=== PATIENT | male | born 1980 | race Two or more races ===

== ENCOUNTER 2022-12-18 10:10 | Inpatient (IN) | payer OTHER ==
[2022-12-18] MEDS ORDERED: ACETAMINOPHEN 1000 MG/100 ML BAG IVPB ONE (10:38)
[2022-12-18] MEDS ORDERED: FAMOTIDINE 20 MG/50 ML IVPB 20 MG/50 ML MG IVPB ONE ×2 (10:38→11:01)
[2022-12-18] MEDS ORDERED: LACTATED RINGERS SOLUTION 1,000 ML/1,000 ML INFUS.BAG IV SCH ×2 (10:45→18:45)
[2022-12-18 11:00] LABS: BASO % 0.2 % (0-2.0); EOS % 2.1 % (0-4.5); HEMATOCRIT 42.5 % (35.4-49); HEMOGLOBIN 14.1 GM/dL (11.7-16.9); LYMPH % 7.3 % (8-40); MCH 29.9 pg (25.7-33.7); MCHC 33.3 g/dl (32.0-35.9); MEAN CELL VOLUME 89.8 fl (80-96); MONO % 3.7 % (3.8-10.2); NEUT % 86.7 % (42.8-82.8); PLATELET COUNT 288 10^3/uL (134-434); RBC 4.73 M/mm3 (4.00-5.60); RDW 12.8 % (11.9-15.9); WHITE BLOOD COUNT 17.4 K/mm3 (4.0-10.0)
[2022-12-18] MEDS ORDERED: ACETAMINOPHEN INJECTION 100 ML IVPB ONE (11:01)
[2022-12-18 11:08] LABS: INR 1.03 (0.83-1.09)
[2022-12-18 11:11] LABS: ACTIVATED PTT 26.9 SECONDS (25.2-36.5)
[2022-12-18 11:26] LABS: POTASSIUM 4.2 mmol/L (3.5-5.1)
[2022-12-18 11:28] LABS: BLOOD UREA NITROGEN 19.8 mg/dL (7-18); CALCIUM 8.5 mg/dL (8.5-10.1)
[2022-12-18 11:30] LABS: ALBUMIN 3.8 g/dl (3.4-5.0)
[2022-12-18 11:31] LABS: CREATININE 0.9 mg/dL (0.55-1.3)
[2022-12-18 11:33] LABS: BILIRUBIN,TOTAL 0.4 mg/dL (0.2-1)
[2022-12-18] MEDS ORDERED: ONDANSETRON 4 MG/2 ML VIAL IVPUSH ONE (13:00)
[2022-12-18] MEDS ORDERED: morphine CARPU-JECT 4 MG/1 ML DISP.SYRIN IVPUSH ONE (13:01)
[2022-12-18] MEDS ORDERED: ONDANSETRON 4 MG/2 ML VIAL ONE (13:16)
[2022-12-18] MEDS ORDERED: morphine SULFATE 4 MG/ML VIAL ONE (13:16)
[2022-12-18] MEDS ORDERED: BUPIVACAINE HCL/PF 0.25% (2.5MG/ML) 10 ML VIAL ONE ×2 (14:33→16:52)
[2022-12-18] MEDS ORDERED: HEPARIN NA (PORCINE) 5,000 UNITS/ML 1ML VIAL ONE (14:33)
[2022-12-18] MEDS ORDERED: ROCURONIUM BROMIDE 50 MG/5 ML SYRINGE ONE (16:10)
[2022-12-18] MEDS ORDERED: PROPOFOL 40 ML ONE (16:10)
[2022-12-18] MEDS ORDERED: MIDAZOLAM HCL 2 MG/2 ML SINGLE DOSE VIAL ONE (16:10)
[2022-12-18] MEDS ORDERED: HYDROmorphone HCl 2 MG/ML VIAL ONE (16:47)
[2022-12-18] MEDS ORDERED: CEFOXITIN SODIUM 1 GM IVPB ONE (16:54)
[2022-12-18] MEDS ORDERED: cefOXitin SODIUM 2 GM VIAL (RESTRICTED TO ID) IVPB ONE (16:54)
[2022-12-18] MEDS ORDERED: cefoTEtan DISODIUM 1 GM VIAL (RESTRICTED TO ID) IVPB ONE (17:00)
[2022-12-18] MEDS ORDERED: BUPIVACAINE HCL/PF 0.25% (2.5MG/ML) 10 ML VIAL IJ ONE (17:08)
[2022-12-18] MEDS ORDERED: SUGAMMADEX SODIUM 200 MG/2 ML VIAL ONE (17:55)
[2022-12-18] MEDS ORDERED: ONDANSETRON 4 MG/2 ML VIAL IVPUSH PRN ×2 (18:19→18:45)
[2022-12-18] MEDS: ACETAMINOPHEN 1000 MG/100 ML BAG IVPB SCH (19:00)
[2022-12-18] MEDS ORDERED: oxyCODONE HCL 5 MG TABLET PO PRN (19:15)
[2022-12-18] MEDS ORDERED: ACETAMINOPHEN 325 MG TABLET (FP) PO PRN (19:15)
[2022-12-19 01:25] VITALS: BMI 31.6
[2022-12-19] MEDS: KETOROLAC TROMETHAMINE 30 MG/1 ML VIAL IVPUSH SCH ×2 (06:05→09:46)
[2022-12-19] MEDS: ACETAMINOPHEN 1000 MG/100 ML BAG IVPB SCH ×2 (06:05→06:16)
[2022-12-19 09:14] LABS: BASO % 0.2 % (0-2.0); EOS % 0.2 % (0-4.5); HEMATOCRIT 39.4 % (35.4-49); HEMOGLOBIN 13.4 GM/dL (11.7-16.9); MCH 30.1 pg (25.7-33.7); MEAN CELL VOLUME 88.4 fl (80-96); MEAN PLT VOLUME 7.9 fl (7.5-11.1); MONO % 6.6 % (3.8-10.2); PLATELET COUNT 279 10^3/uL (134-434); RBC 4.45 M/mm3 (4.00-5.60); RDW 13.1 % (11.9-15.9); WHITE BLOOD COUNT 12.8 K/mm3 (4.0-10.0)
[2022-12-19 09:26] LABS: POTASSIUM 3.9 mmol/L (3.5-5.1)
[2022-12-19 09:30] LABS: CALCIUM 8.2 mg/dL (8.5-10.1)
[2022-12-19 09:31] LABS: ALBUMIN 3.6 g/dl (3.4-5.0)
[2022-12-19 09:33] LABS: CREATININE 0.8 mg/dL (0.55-1.3); PHOSPHOROUS 3.4 mg/dL (2.5-4.9)
[2022-12-19 09:35] LABS: BILIRUBIN,TOTAL 0.6 mg/dL (0.2-1); TOT PROT 6.3 g/dl (6.4-8.2)
[2022-12-19 13:44] VITALS: BP 115/70; PULSE 67; RESP 16; TEMP 98.1
== END 2022-12-19 12:10 | disposition home or self-care (01) | DRG 228 ==
LOC: JER 10:10 → JERBED 13:47 → J5S 20:09
PROVIDERS: ADMIT Internal Medicine; ATTEND Nurse Practitioner Acute Care
PROC: 0WUF4JZ Supplement Abdominal Wall with Synthetic Substitute, Percutaneous Endoscopic Approach (ICD-10-PCS; principal; 2022-12-18 14:30)
PROC: 0DJV4ZZ Inspection of Mesentery, Percutaneous Endoscopic Approach (ICD-10-PCS; 2022-12-18 14:30)
DX: K42.0 Umbilical hernia with obstruction, without gangrene (principal); E78.5 Hyperlipidemia, unspecified; I10 Essential (primary) hypertension; E66.9 Obesity, unspecified; Z68.31 Body mass index [BMI] 31.0-31.9, adult
CPT/HCPCS: 36415; 74177-TC; 80053; 80061; 83605; 83690; 83735; 84100; 84443; 85025; 85610; 85730; 86850; 86900; 86901; 93005; 93010; 93306-TC; 94760; 99285-25; C1781; J1644